=== PATIENT | female | born 1980 | race African-American/Black ===

== ENCOUNTER 2021-11-05 12:12 | Emergency (ER) | payer OTHER ==
[2021-11-05] MEDS ORDERED: Dexamethasone 10 MG/ML VIAL ONE (13:19)
== END 2021-11-05 13:48 | disposition home or self-care (01) ==
LOC: CSHERS 12:12
DX: R05.9 Cough, unspecified (principal); R09.81 Nasal congestion; Z87.891 Personal history of nicotine dependence
CPT/HCPCS: 99283; J1100

== ENCOUNTER 2023-12-28 20:04 | Emergency (ER) | payer OTHER, MEDICAID ==
[2023-12-28] MEDS ORDERED: Ipratropium/Albuterol 3 ML NEB ONE ×2 (20:28→21:58)
[2023-12-28] MEDS ORDERED: Dexamethasone 10 MG/ML VIAL ONE (20:33)
[2023-12-28] MEDS ORDERED: Magnesium 2 GM/50 ML BAG (IN WATER) ONE (22:01)
== END 2023-12-28 22:45 | disposition home or self-care (01) ==
LOC: CSHERS 20:04
DX: J45.901 Unspecified asthma with (acute) exacerbation (principal); I10 Essential (primary) hypertension; Z87.891 Personal history of nicotine dependence
CPT/HCPCS: 71045; 94640; 94760; 96372; 96374; J1100; J3475; J7620